=== PATIENT | female | born 1945 | race Caucasian/White ===

== ENCOUNTER 2020-01-21 19:33 | Emergency (ER) | payer MEDICARE, SELFPAY ==
[2020-01-21 19:36] VITALS: BP 155/58; PULSE 55; RESP 18; TEMP 37.2; O2SAT 93; BMI 28.3
[2020-01-21 20:44] LABS: Absolute Lymphocyte Count 0.83 X10^3/uL (0.83-4.51); Absolute Neutrophil Count 10.1 X10^3/uL (2.0-7.7); Basophil# 0.09 X10^3/uL; Basophil% 0.7 % (0-1); Eosinophil# 0.23 X10^3/uL; Eosinophils% 1.9 % (0-5); Hematocrit 23.4 % (37-47); Hemoglobin 7.2 g/dL (12.0-15.0); Lymphocyte # 0.83 X10^3/ul (4.0); Lymphocyte % 6.9 % (19-41); Mean Corp Hgb Conc 30.8 g/dL (32-36); Mean Corpuscular Volume 100.9 fL (81-99); Mean Platelet Vol. 9.9 fl (6.2-12.0); Monocyte# 0.69 X10^3/uL; Monocyte% 5.7 % (0-10); NRBC Flagged by Analyzer 0 % (0-5); Neutrophil # 10.11 X10^3/uL (2.7-7.7); Neutrophil % 84.3 % (47-70); Platelet Count 562 K/mm3 (150-450); RBC Distribution Width CV 14.7 % (11.6-14.6); RBC Distribution Width SD 53.1 fl (35.1-43.9); Red Blood Count 2.32 M/mm3 (4.2-5.4)
[2020-01-21 20:53] LABS: International Normalized Ratio 1.2; Prothrombin Time (Protime)PT. 14.5 SECONDS (11.7-14.9)
[2020-01-21 20:54] LABS: Partial Thromboplast Time 32.3 Seconds (24.1-36.2)
[2020-01-21 21:17] LABS: Color, Urine Yellow (Yellow); Glucose, Dipstick Normal (Normal); Ketone-Dipstick Negative (Negative); Leukocyte Esterase-Dipstick 100 /ul (Negative); Nitrite-Dipstick Negative (Negative); Occult Blood-Urine Negative /ul (Negative); Protein-Dipstick 100 mg/dl (Negative); Urine Bilirubin Dipstick Negative (Negative); Urine Clarity Sl. Cloudy (Clear); Urine Urobilinogen Normal (Normal); Urine pH 6.5 (5.0 - 8.0)
[2020-01-21 21:18] LABS: Bacteria 0 SEEN /hpf (None Seen); Mucous, Urine 0 SEEN /hpf (<or=2+)
[2020-01-21 21:27] LABS: ALB/GLOB Ratio 0.7 RATIO (0.9-2.4); AST(SGOT) 7 U/L (15-37); Alanine Aminotransfer ALT/SGPT 7 U/L (13-56); Albumin, Serum 2.5 g/dL (3.2-5.0); Alkaline Phosphatase 173 U/L (45-117); Anion Gap 5 (5-15); BUN 29 mg/dL (7-18); BUN/Creat Ratio 17.4 RATIO (10-20); Calcium,Total 8.3 mg/dL (8.5-10.1); Chloride 116 mmol/L (98-107); Creatinine, Serum 1.67 mg/dL (0.55-1.02); EST Glomerular Filtration Rate 32 mL/min (>60); Est Glom Filt Rate - Afr Amer 38 mL/min (>60); Estimated Creatinine Clearance 31.48 ml/min; Globulin 3.7 g/dL (2.2-4.2); Glucose 96 mg/dL (74-106); Potassium 4.1 mmol/L (3.5-5.1); Protein, Total 6.2 g/dL (6.4-8.2); Sodium Level 145 mmol/L (136-145)
[2020-01-21 21:42] LABS: Hyaline Cast 0-5 SEEN /lpf (0-5)
[2020-01-21 21:44] LABS: Red Blood Cells-Urine 0-5 SEEN /hpf (0-5)
[2020-01-21 21:46] LABS: Squamous Epithelial Cells - UA 0-5 SEEN /hpf (5-10)
[2020-01-21 21:47] LABS: White Blood Cells 5-10 SEEN /hpf (0-5)
[2020-01-21 22:01] VITALS: BP 157/62; PULSE 60; RESP 14; TEMP 37.2; O2SAT 95
--- NOTE | 2020-01-21 22:07 | ED.VISSUMM ---
- ER Visit Summary Date of Service: 01/21/20 Chief Complaint: Abnormal labs History of Present Illness: The patient is a 74 F who presents with abnormal labs. Patient had lab work drawn at the [facility] where she lives earlier today and they noticed a hemoglobin that was low. Report that it was around 7. Patient states she feels tired and weak. Patient has a history of anemia from chronic kidney disease. Patient denies any melena or hematochezia. Patient denies any chest pain or shortness of breath. Patient denies any nausea or vomiting. Physical Examination: Vital signs are stable. Patient is afebrile. Patient is in no acute distress. Oral mucosa is pink and moist. Neck is supple. Trachea is midline. There is no JVD. Heart was regular rate and rhythm. Lungs are clear and equal bilaterally. Abdomen is soft. Bowel sounds are normal. There is no tenderness. Cranial nerves II through XII are grossly intact. There are no focal motor or sensory deficits noted. Extremities are intact. There is no calf tenderness or edema. Test Results: CBC showed a hemoglobin of 7.2 and hematocrit of 23.4. There is also mild leukocytosis of 12.0. Comprehensive metabolic profile showed a creatinine of 1.67 and a BUN of 29. Alk phos was slightly elevated at 173. Urinalysis shows leukocyte esterase of 100 with 5-10 white blood cells. Urine culture was sent. Emergency Department Course and Treatment: Since the patient is symptomatic and her hemoglobin is 7.2, patient will be transfused 1 unit of red blood cells. Patient will be discharged back to the extended care facility after this is transfused. This was discussed with Dr. Elmore who is covering for Dr. Pitts. He is agreeable with this. Patient understands and is agreeable with the plan. All questions were answered. Disposition: Discharge home Impression: 1. Anemia This note was generated with [employer] software. It may contain incorrect words, spelling, and punctuation that were not noted in review of the chart prior to signing ED Disposition - Plan for ED Patient: Disposition: Home or Assisted Living Diagnosis: Anemia Instructions: ED Anemia Type Not Specified Referrals: Abelino Pitts MD [Primary Care Provider] - 3-5 Days
[2020-01-21 22:20] VITALS: BP 160/74; PULSE 53; RESP 22; O2SAT 95
[2020-01-22 00:22] VITALS: BP 156/63; PULSE 60; RESP 22; TEMP 36.6; O2SAT 93
[2020-01-22 00:37] VITALS: BP 155/63; PULSE 60; RESP 20; TEMP 36.6; O2SAT 93
[2020-01-22 01:37] VITALS: BP 156/64; PULSE 59; RESP 20; TEMP 37.2; O2SAT 91
[2020-01-22 02:07] VITALS: BP 162/68; PULSE 61; RESP 24; O2SAT 93
[2020-01-22 02:43] VITALS: BP 162/63; PULSE 55; RESP 20; TEMP 37; O2SAT 92
== END 2020-01-22 02:50 | disposition home or self-care (01) ==
PROVIDERS: Emergency Provider Emergency Medicine; PCP Family Medicine
DX: N18.9 Chronic kidney disease, unspecified (principal); D63.1 Anemia in chronic kidney disease; R53.83 Other fatigue; G20 Parkinson's disease; F02.80 Dementia in other diseases classified elsewhere, unspecified severity, without behavioral disturbance, psychotic disturbance, mood disturbance, and anxiety
CPT/HCPCS: 36430; 51702; 80053; 81001; 85025; 85610; 85730; 86850; 86900; 86901; 86920; 86922; 87086; 99285; J7040; P9016; A4216